=== PATIENT | female | born 1945 | race Native Hawaiian/Other Pacific Islander ===

== ENCOUNTER 2017-11-23 12:21 | Outpatient (CLI) | payer MEDICARE, OTHER ==
--- NOTE | 2017-11-23 20:52 | XRay Report ---
FINAL REPORT PROCEDURE: XR SHOULDER 2+V RT TECHNIQUE: Right shoulder radiographs including AP views in internal and external rotation and abduction. CPT 75785 HISTORY: RIGHT SHOULDER PAIN COMPARISON: No prior studies are available for comparison. FINDINGS: Fracture (s) and/or Dislocation(s): None . Joint space(s): Moderate narrowing of the joint spaces. Moderate spur formation off of the acromioclavicular joint. Soft tissues: Normal . Bone mineralization: Normal . Foreign bodies: None . IMPRESSION: No evidence of an acute fracture or dislocation. Mild arthritis
== END 2017-11-23 12:22 | disposition home or self-care (01) ==
LOC: SPVIMAG 12:21
PROVIDERS: ATTEND Orthopaedic Surgery
DX: M19.011 Primary osteoarthritis, right shoulder (principal)